=== PATIENT | female | born 1985 | race Caucasian/White ===

== ENCOUNTER 2016-06-22 11:33 | Emergency (ER) ==
[2016-06-22 11:48] VITALS: BP 120/68
[2016-06-22 13:23] LABS: BASO% 0.5 % (0.0-0.8); EOS# 0.35 X1000 (0.0-0.7); EOS% 6.3 % (0.0-10.0); HEMATOCRIT 34.2 % (37.0-47.0); HEMOGLOBIN 10.8 g/dL (12.0-16.0); IMM GRAN# 0.01 X1000 (0.0-0.04); IMM GRAN% 0.2 % (0.0-0.5); LYMPH# 1.19 X1000 (1.2-3.4); LYMPH% 21.4 % (20.5-51.1); MANUAL DIFF NEEDED? NO; MCH 24.8 PG (27-31); MCHC 31.6 g/dL (33-37); MCV 78.4 FL (81-99); MONO# 0.86 X1000 (0.11-0.59); MONO% 15.5 % (1.7-9.3); MPV 10.2 FL (7.4-10.4); NEUT% 56.1 % (42.2-75.2); PLT 296 X1000 (130-400); RBC 4.36 XMIL (4.2-5.4)
--- NOTE | 2016-06-22 13:41 | PROVIDER DOCUMENTATION ---
HPI-EENT General - General Chief Complaint: Sore Throat Stated Complaint: SORE THROAT Time Seen by Provider: 06/22/16 12:24 Source: patient Allergies/Adverse Reactions: Patient Allergies Allergy/AdvReac Type Severity Reaction Status Date / Time amoxicillin [Amoxicillin] Allergy Mild weight loss Verified 10/12/14 17:01 - History of Present Illness-EENT General Nature of Presenting Problem: has upper respiratory illness on zpak not any better has bursitis of thighs and shoulders along w/uri sx EENT Location: reports: nose, throat Quality of Pain: reports: aching Severity: reports: mild Onset/Duration: reports: 5 days ago Timing: reports: still present Prearrival Treatment: Initiated over the counter meds, Initiated prescription meds Associated Symptoms: reports: malaise, nasal congestion/drainage, sore throat Locality of Occurance: Home Similar Symptoms Previously?: Yes Recently seen or treated by another doctor?: Yes Review of Systems - Adult - REVIEW OF SYSTEMS - ADULT Constitutional: reports: fever Eyes: reports: no symptoms reported Ears, Nose, Mouth & Throat: reports: sinus problem, throat pain Cardiovascular: reports: no symptoms reported Respiratory: reports: cough Gastrointestinal: reports: no symptoms reported Genitourinary: reports: no symptoms reported Musculoskeletal: reports: no symptoms reported Integumentary: reports: no symptoms reported Neurological: reports: no symptoms reported Endocrine: reports: no symptoms reported Hematologic/Lymphatic: reports: no symptoms reported Allergic/Immunologic: reports: no symptoms reported Past History - Adult - PAST MEDICAL HISTORY-ADULT Review of Records: reports: Nursing Assessment Review, Medications Reviewed, Social history reviewed & non-contributory. Major Childhood Illnesses: reports: denies history Cardiovascular: reports: denies history Respiratory: reports: denies history Gastrointestinal: reports: denies history Obstetrical/Gynecological: reports: denies history Genitourinary: reports: kidney stones Musculoskeletal: reports: denies history Neurological: reports: denies history Endocrine/Immune: reports: denies history Other Conditions: reports: denies history - PRIOR SURGERIES/PROCEDURES Surgical/Procedure History: reports: BTL, tonsillectomy - IMMUNIZATION STATUS Childhood Immunizations: See Nurse Assessment Flu Vaccine: See Nurse Assessment Physical Exam- EENT - Physical Exam EENT Initial Vital Signs Reviewed: Yes General Appearance: appears well, alert Eye Exam: bilateral eye: normal inspection, PERRL Ear Exam: bilateral ear: auricle normal, canal normal, TM normal Nasal Exam: normal inspection Throat Exam: pharynx normal Neck: supple. negative: lymphadenopathy Respiratory: lungs clear Cardiovascular: regular rate, rhythm Abdominal Exam: soft Extremity: normal range of motion Integumentary: normal color Neurologic: grossly normal Psych/Mental Status: oriented x 3 Progress - PLAN OF CARE/RESULTS Progress/Plan/Lab Results: Laboratory Tests 06/22/16 06/22/16 06/22/16 11:43 11:43 13:18 WBC 5.56 RBC 4.36 Hgb 10.8 L Hct 34.2 L MCV 78.4 L MCH 24.8 L MCHC 31.6 L RDW Std Deviation 15.1 H Plt Count 296 MPV 10.2 Immature Gran % (Auto) 0.2 Neut % (Auto) 56.1 Lymph % (Auto) 21.4 Jenkins % (Auto) 15.5 H Eos % (Auto) 6.3 Baso % (Auto) 0.5 Immature Gran # (Auto) 0.01 Neut # (Auto) 3.12 Lymph # (Auto) 1.19 L Jenkins # (Auto) 0.86 H Eos # (Auto) 0.35 Baso # (Auto) 0.03 Influenza A (Rapid) NEGATIVE Influenza B (Rapid) NEGATIVE Group A Strep Rapid NEGATIVE - XRAY 1 XRAY Study: other (sinus neg) Departure - Departure Time of Disposition Order: 13:41 DIAGNOSIS: URI, acute Disposition: HOME 01 Certified Medical Emergency: Emergent Condition: Stable Prescriptions: Guaifenesin/Codeine [Robitussin-AC] 10 ml PO Q4H PRN PRN #4 oz PRN Reason: Cough
--- NOTE | 2016-06-22 13:44 | Diag Imaging Result Document ---
PROCEDURE NAME: SINUSES METZGER VIEW ONLY - 06/22/2016 SINGLE METZGER VIEW OF THE PARANASAL SINUSES: COMPARISON: None available. FINDINGS: The paranasal sinuses are grossly clear. There is no definite air-fluid level identified. The mastoid air cells appear to be clear. Surrounding bony structures are grossly intact. IMPRESSION: Grossly unremarkable Metzger view of the paranasal sinuses.
== END 2016-06-22 14:01 | disposition home or self-care (01) ==
LOC: P.ED 11:33
DX: J06.9 Acute upper respiratory infection, unspecified (principal); R09.81 Nasal congestion; R53.81 Other malaise; J02.9 Acute pharyngitis, unspecified; R50.9 Fever, unspecified; R05 Cough; Z87.442 Personal history of urinary calculi
CPT/HCPCS: 36415; 70210; 85025; 87081; 87430; 87799; 87804; 99283